=== PATIENT | male | born 1955 | race Caucasian/White ===

== ENCOUNTER 2020-02-06 13:22 | Emergency (ER) | payer OTHER, BC ==
[2020-02-06] MEDS ORDERED: GLUCAGON 1 MG/VIAL ONE ×2 (13:47→14:39)
[2020-02-06] MEDS ORDERED: NA CHLORIDE 0.9% 1,000 ML ONE (17:09)
[2020-02-06] MEDS ORDERED: PANTOPRAZOLE 40 MG INJ ONE (17:09)
--- NOTE | 2020-02-06 17:45 | EDPHYS ---
Physician Documentation [facility] Name: Julio Li Age: 64 yrs Sex: Male : 1955 Arrival Date: 02/06/2020 Time: 13:25 Bed 20 Private MD: ED Physician Matt Britton HPI: 02/05 14:08 This 64 yrs old Male presents to ER via Ambulatory with complaints of Throat Problem. snw 14:08 Onset: The symptoms/episode began/occurred suddenly. Associated signs and symptoms: The snw patient has no apparent associated signs or symptoms. The patient has not experienced similar symptoms in the past. The patient has not recently seen a physician. no airway compromise, no vomiting, pt was swallowing a motrin and feels it became stuck. Historical: - Allergies: 13:33 Aspirin; ca1 - Home Meds: 13:33 lisinopril 10 mg Oral tab 1 tab once daily [Active]; ca1 - PMHx: 13:33 Hypertension; ca1 - PSHx: 13:33 None; ca1 - Immunization history:: Adult Immunizations up to date, Pneumococcal vaccine is not up to date, Flu vaccine is not up to date. - Social history:: Smoking status: Patient denies any tobacco usage or history of. ROS: 14:08 Constitutional: Negative for fever, chills, and weight loss, Eyes: Negative for injury, snw pain, redness, and discharge, Neck: Negative for injury, pain, and swelling, Cardiovascular: Negative for chest pain, palpitations, and edema, Respiratory: Negative for shortness of breath, cough, wheezing, and pleuritic chest pain, Abdomen/GI: Negative for abdominal pain, nausea, vomiting, diarrhea, and constipation, Back: Negative for injury and pain, : Negative for injury, bleeding, discharge, and swelling, MS/Extremity: Negative for injury and deformity, Skin: Negative for injury, rash, and discoloration, Neuro: Negative for headache, weakness, numbness, tingling, and seizure, Psych: Negative for depression, anxiety, suicide ideation, homicidal ideation, and hallucinations. 14:08 ENT: Positive for feeling pill stuck in throat, unable to swallow liquids. Exam: 14:08 Constitutional: This is a well developed, well nourished patient who is awake, alert, snw and in no acute distress. Head/Face: Normocephalic, atraumatic. Eyes: Pupils equal round and reactive to light, extra-ocular motions intact. Lids and lashes normal. Conjunctiva and sclera are non-icteric and not injected. Cornea within normal limits. Periorbital areas with no swelling, redness, or edema. ENT: Nares patent. No nasal discharge, no septal abnormalities noted. Tympanic membranes are normal and external auditory canals are clear. Oropharynx with no redness, swelling, or masses, exudates, or evidence of obstruction, uvula midline. Mucous membranes moist. Neck: Trachea midline, no thyromegaly or masses palpated, and no cervical lymphadenopathy. Supple, full range of motion without nuchal rigidity, or vertebral point tenderness. No Meningismus. Chest/axilla: Normal chest wall appearance and motion. Nontender with no deformity. No lesions are appreciated. Cardiovascular: Regular rate and rhythm with a normal S1 and S2. No gallops, murmurs, or rubs. Normal PMI, no JVD. No pulse deficits. Respiratory: Lungs have equal breath sounds bilaterally, clear to auscultation and percussion. No rales, rhonchi or wheezes noted. No increased work of breathing, no retractions or nasal flaring. Abdomen/GI: Soft, non-tender, with normal bowel sounds. No distension or tympany. No guarding or rebound. No evidence of tenderness throughout. Back: No spinal tenderness. No costovertebral tenderness. Full range of motion. Skin: Warm, dry with normal turgor. Normal color with no rashes, no lesions, and no evidence of cellulitis. MS/ Extremity: Pulses equal, no cyanosis. Neurovascular intact. Full, normal range of motion. Neuro: Awake and alert, GCS 15, oriented to person, place, time, and situation. Cranial nerves II-XII grossly intact. Motor strength 5/5 in all extremities. Sensory grossly intact. Cerebellar exam normal. Normal gait. Psych: Awake, alert, with orientation to person, place and time. Behavior, mood, and affect are within normal limits. Vital Signs: 13:26 BP 136 / 100; Pulse 108; Resp 16 S; Temp 98.3(O); Pulse Ox 99% on R/A; Weight 99.79 kg ca1 (R); Height 6 ft. 2 in. (187.96 cm) (R); 14:30 BP 135 / 110; Pulse 127; Resp 17; Pulse Ox 98% ; rb1 15:30 BP 149 / 110; Pulse 105; Resp 18; Pulse Ox 100% on R/A; rb1 16:30 BP 164 / 106; Pulse 109; Resp 19; Pulse Ox 100% ; rb1 17:22 BP 119 / 99; Pulse 102; Resp 16; Pulse Ox 100% on R/A; rb1 18:20 BP 128 / 98; Pulse 101; Resp 17; Pulse Ox 100% on R/A; rb1 13:26 Body Mass Index 28.25 (99.79 kg, 187.96 cm) ca1 MDM: 13:40 Patient medically screened. snw 16:57 Data reviewed: vital signs, nurses notes. Data interpreted: Pulse oximetry: on room air snw is 100 %. Interpretation: normal. Counseling: I had a detailed discussion with the patient and/or guardian regarding: the historical points, exam findings, and any diagnostic results supporting the discharge/admit diagnosis, the need to transfer to another facility, [facility] does not immediately have the required specialist. Physician consultation: Dr. Ledesma was called at 16:57, was contacted at 16:57, regarding consult, patient's condition, need to evaluate the patient as soon as possible, Dr. Ledesma kindly accepts consult for urgent endoscopy, will have hospitalist call . 17:39 ED course: Pt unable to tolerate coke at 1420, re-dosed with glucagon. Pt remains snw unable to tolerate coke po. Spoke with Dr. Ledesma and he kindly agrees to see pt in endoscopy. Spoke with Dr. Beard will take pt in transfer.. 02/05 18:08 Order name: CBC with Diff; Complete Time: 18:32 snw 02/05 18:08 Order name: PT-INR; Complete Time: 18:32 snw 02/05 16:56 Order name: NPO; Complete Time: 17:18 snw Administered Medications: 13:48 Drug: Glucagon 1 mg Route: IVP; Site: right antecubital; rb1 14:00 Follow up: Response: No adverse reaction rb1 14:38 Drug: Glucagon 1 mg Route: IVP; Site: right antecubital; rb1 14:50 Follow up: Response: No adverse reaction rb1 17:10 Drug: ProTONIX 40 mg Route: IVP; Site: right antecubital; rb1 17:25 Follow up: Response: No adverse reaction rb1 17:10 Drug: NS 0.9% 1000 ml Route: IV; Rate: 75 ml/hr; Site: right antecubital; rb1 18:35 Follow up: IV Status: Completed infusion rb1 Disposition: 02/06 06:40 Co-signature as Attending Physician, Matt Britton MD I agree with the assessment and kdr plan of care. Disposition: 02/06/20 17:44 Transfer ordered to [facility]. Diagnosis is Esophageal foreign body. - Reason for transfer: Specialty. - Accepting physician is Dr. Beard. - Condition is Stable. - Problem is new. - Symptoms are unchanged. Signatures: Dispatcher [employer] EDMS Matt Britton MD MD kdr Ashley Quispe, POULTRY [employer]-C POULTRY F[employer]ER [employer]-Csnw Pretty Manjarrez, RN RN rb1 Maria Luisa Mercer RN RN ca1 Corrections: (The following items were deleted from the chart) 02/05 18:41 17:44 02/06/2020 17:44 Transfer ordered to [facility]. rb1 Diagnosis is Esophageal foreign body. Reason for transfer: Specialty. Accepting physician is Dr. Beard. Condition is Stable. Problem is new. Symptoms are unchanged. snw
--- NOTE | 2020-02-06 17:45 | ER ---
Nurse's Notes [facility] Name: Julio Li Age: 64 yrs Sex: Male : 1955 Arrival Date: 02/06/2020 Time: 13:25 Bed 20 Private MD: Diagnosis: Esophageal foreign body Presentation: 02/05 13:26 Chief complaint: Patient states: About an hour ago, took Ibuprofen for sinus headache. ca1 Reports medication/pill is stuck in the throat. Reports inability to swallow oral secretions. Denies cough, congestion, SOB. Coronavirus screen: Patient denies fever greater than 100.4F, cough, shortness of breath, or difficulty breathing. Proceed with normal triage process. Ebola Screen: Patient negative for fever greater than or equal to 101.5 degrees Fahrenheit, and additional compatible Ebola Virus Disease symptoms Patient denies exposure to infectious person. Patient denies travel to an Ebola-affected area in the 21 days before illness onset. No symptoms or risks identified at this time. Initial Sepsis Screen: Does the patient meet any 2 criteria? No. Patient's initial sepsis screen is negative. Does the patient have a suspected source of infection? No. Patient's initial sepsis screen is negative. Risk Assessment: Do you want to hurt yourself or someone else? Patient reports no desire to harm self or others. Onset of symptoms was February 06, 2020. 13:26 Method Of Arrival: Ambulatory ca1 13:26 Acuity: CRISTY 3 ca1 Historical: - Allergies: 13:33 Aspirin; ca1 - Home Meds: 13:33 lisinopril 10 mg Oral tab 1 tab once daily [Active]; ca1 - PMHx: 13:33 Hypertension; ca1 - PSHx: 13:33 None; ca1 - Immunization history:: Adult Immunizations up to date, Pneumococcal vaccine is not up to date, Flu vaccine is not up to date. - Social history:: Smoking status: Patient denies any tobacco usage or history of. Screenin:35 Abuse screen: Denies threats or abuse. Nutritional screening: No deficits noted. rb1 Tuberculosis screening: No symptoms or risk factors identified. Fall Risk None identified. Assessment: 13:35 General: Appears uncomfortable, Behavior is calm, cooperative. Pain: Denies pain. rb1 Neuro: Level of Consciousness is awake, alert, obeys commands, Oriented to person, place, time, situation. Cardiovascular: Capillary refill < 3 seconds is brisk in bilateral fingers. Respiratory: Airway is patent Respiratory effort is even, unlabored, Respiratory pattern is regular, symmetrical, Denies cough, shortness of breath. GI: No signs and/or symptoms were reported involving the gastrointestinal system. : No signs and/or symptoms were reported regarding the genitourinary system. EENT: Throat pt. reports that he has a pill stuck in his throat. Derm: Skin is pink, warm \T\ dry. 14:08 Reassessment: pt. was given a soda to drink to try to dislodge the pill. rb1 14:35 Reassessment: Patient appears in no apparent distress at this time. Patient and/or rb1 family updated on plan of care and expected duration. Pain level reassessed. Patient is alert, oriented x 3, equal unlabored respirations, skin warm/dry/pink. Provider notified that the pt. has not received dislodged the pill. Received verbal order for glucagon 1 mg IVP x 1. 100% read back. Patient states symptoms have not improved. 15:30 Reassessment: Patient appears in no apparent distress at this time. Provider notified. rb1 Patient states symptoms have not improved. 16:30 Reassessment: Patient appears in no apparent distress at this time. Patient and/or rb1 family updated on plan of care and expected duration. Pain level reassessed. Patient is alert, oriented x 3, equal unlabored respirations, skin warm/dry/pink. Patient states symptoms have not improved. 17:19 Reassessment: Patient appears in no apparent distress at this time. Pt. is sitting on rb1 the side of the bed. Told him to not eat or drink anything more. Pt. verbalized understanding. 17:35 Reassessment: called report to ROSELINE Morton at [facility] in [place]. Information from [facility] the [facility] was given. All questions asked and answered. 18:15 Reassessment: Patient appears in no apparent distress at this time. Patient and/or rb1 family updated on plan of care and expected duration. Pain level reassessed. Patient is alert, oriented x 3, equal unlabored respirations, skin warm/dry/pink. Vital Signs: 13:26 BP 136 / 100; Pulse 108; Resp 16 S; Temp 98.3(O); Pulse Ox 99% on R/A; Weight 99.79 kg ca1 (R); Height 6 ft. 2 in. (187.96 cm) (R); 14:30 BP 135 / 110; Pulse 127; Resp 17; Pulse Ox 98% ; rb1 15:30 BP 149 / 110; Pulse 105; Resp 18; Pulse Ox 100% on R/A; rb1 16:30 BP 164 / 106; Pulse 109; Resp 19; Pulse Ox 100% ; rb1 17:22 BP 119 / 99; Pulse 102; Resp 16; Pulse Ox 100% on R/A; rb1 18:20 BP 128 / 98; Pulse 101; Resp 17; Pulse Ox 100% on R/A; rb1 13:26 Body Mass Index 28.25 (99.79 kg, 187.96 cm) ca1 ED Course: 13:25 Patient arrived in ED. ag5 13:31 Triage completed. ca1 13:33 Arm band placed on right wrist. ca1 13:35 Patient has correct armband on for positive identification. Bed in low position. Call rb1 light in reach. Side rails up X 1. Pulse ox on. NIBP on. 13:38 Ashley Quispe FNP-C is PHCP. snw 13:38 Matt Britton MD is Attending Physician. snw 13:41 Pretty Manjarrez, ROSELINE is Primary Nurse. rb1 13:46 Inserted saline lock: 20 gauge in right antecubital area, using aseptic technique. jl7 16:34 initiated a transfer with Florina Banegas from the [facility]. eb 16:50 connected the GI injection specialist for [facility] with Ashley PATIENT RESOURCE SPECIALIST for patient transfer eb consultation. 18:40 No provider procedures requiring assistance completed. Patient transferred, IV remains rb1 in place. Administered Medications: 13:48 Drug: Glucagon 1 mg Route: IVP; Site: right antecubital; rb1 14:00 Follow up: Response: No adverse reaction rb1 14:38 Drug: Glucagon 1 mg Route: IVP; Site: right antecubital; rb1 14:50 Follow up: Response: No adverse reaction rb1 17:10 Drug: ProTONIX 40 mg Route: IVP; Site: right antecubital; rb1 17:25 Follow up: Response: No adverse reaction rb1 17:10 Drug: NS 0.9% 1000 ml Route: IV; Rate: 75 ml/hr; Site: right antecubital; rb1 18:35 Follow up: IV Status: Completed infusion rb1 Outcome: 17:44 ER care complete, transfer ordered by . snw 18:40 Transferred by ground EMS to [facility], [facility], Transfer form completed. rb1 18:40 Condition: stable 18:40 Instructed on the need for transfer. 18:41 Patient left the ED. rb1 Signatures: Ashley Quispe, COAT PRESSER-C COAT PRESSER-Csnw Pretty Manjarrez, RN RN rb1 Flower Wilson RN RN jl7 Florina Vick Cheryl RN RN ca1 Best Mccann ag5 Corrections: (The following items were deleted from the chart) 11:35 General: Appears uncomfortable, Behavior is calm, cooperative, rb1 rb1 11:35 Pain: Denies pain. rb1 rb1 11:35 Neuro: Level of Consciousness is awake, alert, obeys commands, Oriented to rb1 person, place, time, situation, rb1 11:35 Cardiovascular: Capillary refill < 3 seconds is brisk in bilateral fingers rb1 rb1 11:35 Respiratory: Airway is patent Respiratory effort is even, unlabored, Respiratory rb1 pattern is regular, symmetrical, Denies cough, shortness of breath rb1 11:35 GI: No signs and/or symptoms were reported involving the gastrointestinal system. rb1 rb1 11:35 : No signs and/or symptoms were reported regarding the genitourinary system. [id number] 11:35 EENT: Throat pt. reports that he has a pill stuck in his throat. rb1 rb1 11:35 Derm: Skin is pink, warm \T\ dry. rb1 rb1 15:46 14:30 Pulse 127bpm; rb1 rb1
[2020-02-06 18:22] LABS: Absolute Lymphocytes (CBC) 1.2 K/uL (0.7-4.9); Basophils % 0.6 % (0-1.3); Hematocrit 42.9 % (39.6-49.0); Lymphocytes % 11.1 % (15.3-44.8); MPV 9.6 fL (7.6-11.3); Protime INR 1.05; RBC Red Blood Cell Count 4.38 M/uL (4.33-5.43)
[2020-02-06 18:48] VITALS: TEMP 98.3
[2020-02-06 18:50] VITALS: O2SAT 100
[2020-02-06 18:53] VITALS: BP 119/99
== END 2020-02-06 18:41 | disposition short-term general hospital (02) ==
LOC: ER 13:22
DX: T18.198A Other foreign object in esophagus causing other injury, initial encounter (principal); X58.XXXA Exposure to other specified factors, initial encounter; I10 Essential (primary) hypertension
CPT/HCPCS: 96361; 85025; 36415; 85610; 96375; 96374; 99285; J1610 ×2; C9113; J7030